=== PATIENT | female | born 1955 | race Caucasian/White ===

== ENCOUNTER 2016-11-22 10:45 | Emergency (ER) | payer OTHER ==
[~2016-11-22] VITALS: Ht 160 cm; Wt 70.5 kg
[~2016-11-22 10:45] MED LIST: DICL75 PO; FLUO10TA PO; ROBA750T3 PO
[2016-11-22 10:49] VITALS: BP 148/72; PULSE 85; RESP 15; TEMP 99.1; O2SAT 99
[2016-11-22] MEDS ORDERED: SODIUM CHLOR 0.9% 1000 ML INJ 1,000 ML IV ONE (11:02)
--- NOTE | 2016-11-22 11:08 | PD ---
HPI Chief Complaint: GI Complaint Time Seen by Provider: 10:56 Travel History International Travel<30 days: No Contact w/Intl Traveler<30days: No Traveled to known affect area: No History of Present Illness HPI The patient is a 61-year-old female who presents emergency department for abdominal pain and diarrhea. The patient states her lower abdominal pain started yesterday, is located bilateral lower quadrants, crampy, radiates to the back, is associated with diarrhea. The patient notes 5 episodes of diarrhea yesterday which started out as loose stool, is now watery with mucus. The patient notes 2 episodes of similar diarrhea this morning. The patient does have a history of C. difficile 2 years ago after antibiotic use. She denies any recent antibiotic use, hospitalizations, or known exposure to C. difficile. She denies any known history of chronic diverticulitis or colitis. She denies any recent international travel. She denies any fever, chills, or sweats. She denies any nausea or vomiting, but does think she may be mildly dehydrated secondary to the diarrhea. PFSH Past Medical History Hx Anticoagulant Therapy: No Anxiety: Yes Cardiovascular Problems: No Chemotherapy: No Cerebrovascular Accident: No Diabetes: No Diminished Hearing: No GERD: Yes Respiratory: No Menopausal: Yes Tubal Ligation: Yes Past Surgical History Hysterectomy: No Tonsillectomy: Yes (T&A) Other Surgery: Yes (RHINOPLASTY) Social History Alcohol Use: No Tobacco Use: Yes (3-4 CIGS DAILY) Substance Use: No Allergies-Medications (Allergen,Severity, Reaction): Coded Allergies: No Known Allergies (Unverified , 11/22/16) Reported Meds & Prescriptions Reported Meds & Active Scripts Active No Active Prescriptions or Reported Medications Review of Systems Except as stated in HPI: all other systems reviewed are Neg General / Constitutional: No: Fever, Chills Cardiovascular: No: Chest Pain or Discomfort Respiratory: No: Shortness of Breath Gastrointestinal: Positive: Diarrhea, Abdominal Pain, No: Nausea, Vomiting Musculoskeletal: No: Myalgias Physical Exam Narrative GENERAL: Awake, alert, nontoxic-appearing 61-year-old female who appears her stated age and is in no acute respiratory distress. SKIN: Focused skin assessment warm/dry. HEAD: Atraumatic. Normocephalic. EYES: Pupils equal and round. No scleral icterus. No injection or drainage. ENT: No nasal bleeding or discharge. Mucous membranes pink and moist. NECK: Trachea midline. No JVD. CARDIOVASCULAR: Regular rate and rhythm. No murmur appreciated. RESPIRATORY: No accessory muscle use. Clear to auscultation. Breath sounds equal bilaterally. GASTROINTESTINAL: Abdomen soft, tender palpation left and right lower quadrant. No guarding or rigidity. Back: No CVA tenderness. MUSCULOSKELETAL: No obvious deformities. No clubbing. No cyanosis. No edema. NEUROLOGICAL: Awake and alert. No obvious cranial nerve deficits. Motor grossly within normal limits. Normal speech. PSYCHIATRIC: Appropriate mood and affect; insight and judgment normal. Data Data Last Documented VS Vital Signs Date Time Temp Pulse Resp B/P (MAP) Pulse Ox O2 Delivery O2 Flow Rate FiO2 11/22/16 11:43 16 11/22/16 11:35 98 Room Air 11/22/16 10:49 99.1 85 148/72 (97) Orders Orders Complete Blood Count With Diff (11/22/16 11:02) Comprehensive Metabolic Panel (11/22/16 11:02) Lipase (11/22/16 11:02) Ct Abd/Pel W/O Iv Contrast (11/22/16 ) Iv Access Insert/Monitor (11/22/16 11:02) Ecg Monitoring (11/22/16 11:02) Oximetry (11/22/16 11:02) Morphine Inj (Morphine Inj) (11/22/16 11:15) Ondansetron Inj (Zofran Inj) (11/22/16 11:15) Sodium Chlor 0.9% 1000 Ml Inj (Ns 1000 M (11/22/16 11:02) Sodium Chloride 0.9% Flush (Ns Flush) (11/22/16 11:15) C Diff Toxin Pcr (11/22/16 11:02) Labs Laboratory Tests Test 11/22/16 11:15 White Blood Count 12.5 TH/MM3 Red Blood Count 4.75 MIL/MM3 Hemoglobin 13.8 GM/DL Hematocrit 41.0 % Mean Corpuscular Volume 86.3 FL Mean Corpuscular Hemoglobin 29.0 PG Mean Corpuscular Hemoglobin Concent 33.6 % Red Cell Distribution Width 14.1 % Platelet Count 292 TH/MM3 Mean Platelet Volume 7.4 FL Neutrophils (%) (Auto) 72.6 % Lymphocytes (%) (Auto) 15.5 % Monocytes (%) (Auto) 9.7 % Eosinophils (%) (Auto) 1.0 % Basophils (%) (Auto) 1.2 % Neutrophils # (Auto) 9.1 TH/MM3 Lymphocytes # (Auto) 1.9 TH/MM3 Monocytes # (Auto) 1.2 TH/MM3 Eosinophils # (Auto) 0.1 TH/MM3 Basophils # (Auto) 0.2 TH/MM3 CBC Comment DIFF FINAL Differential Comment Blood Urea Nitrogen 14 MG/DL Creatinine 0.64 MG/DL Random Glucose 99 MG/DL Total Protein 7.5 GM/DL Albumin 3.5 GM/DL Calcium Level 9.0 MG/DL Alkaline Phosphatase 151 U/L Aspartate Amino Transf (AST/SGOT) 19 U/L Alanine Aminotransferase (ALT/SGPT) 23 U/L Total Bilirubin 0.6 MG/DL Sodium Level 138 MEQ/L Potassium Level 3.8 MEQ/L Chloride Level 104 MEQ/L Carbon Dioxide Level 24.5 MEQ/L Anion Gap 10 MEQ/L Estimat Glomerular Filtration Rate 95 ML/MIN Lipase 187 U/L [facility] Medical Decision Making Medical Screen Exam Complete: Yes Emergency Medical Condition: Yes Medical Record Reviewed: Yes Interpretation(s) Laboratory Tests Test 11/22/16 11:15 White Blood Count 12.5 TH/MM3 Red Blood Count 4.75 MIL/MM3 Hemoglobin 13.8 GM/DL Hematocrit 41.0 % Mean Corpuscular Volume 86.3 FL Mean Corpuscular Hemoglobin 29.0 PG Mean Corpuscular Hemoglobin Concent 33.6 % Red Cell Distribution Width 14.1 % Platelet Count 292 TH/MM3 Mean Platelet Volume 7.4 FL Neutrophils (%) (Auto) 72.6 % Lymphocytes (%) (Auto) 15.5 % Monocytes (%) (Auto) 9.7 % Eosinophils (%) (Auto) 1.0 % Basophils (%) (Auto) 1.2 % Neutrophils # (Auto) 9.1 TH/MM3 Lymphocytes # (Auto) 1.9 TH/MM3 Monocytes # (Auto) 1.2 TH/MM3 Eosinophils # (Auto) 0.1 TH/MM3 Basophils # (Auto) 0.2 TH/MM3 CBC Comment DIFF FINAL Differential Comment Blood Urea Nitrogen 14 MG/DL Creatinine 0.64 MG/DL Random Glucose 99 MG/DL Total Protein 7.5 GM/DL Albumin 3.5 GM/DL Calcium Level 9.0 MG/DL Alkaline Phosphatase 151 U/L Aspartate Amino Transf (AST/SGOT) 19 U/L Alanine Aminotransferase (ALT/SGPT) 23 U/L Total Bilirubin 0.6 MG/DL Sodium Level 138 MEQ/L Potassium Level 3.8 MEQ/L Chloride Level 104 MEQ/L Carbon Dioxide Level 24.5 MEQ/L Anion Gap 10 MEQ/L Estimat Glomerular Filtration Rate 95 ML/MIN Lipase 187 U/L CT of the abdomen and pelvis reveals acute diverticulitis Differential Diagnosis Differential diagnosis includes colitis, diverticulitis, C. difficile, enteritis , viral syndrome, dehydration, partial small bowel obstruction. Narrative Course IV was established, labs are drawn and sent, and the patient was placed on cardiac telemetry monitoring and continuous pulse oximetry monitoring. Noncontrast CT of the abdomen and pelvis was ordered to evaluate for colitis/ diverticulitis. The patient was administered morphine, Zofran, and IV fluids. C. difficile toxin via PCR stool was ordered. Labs are unremarkable except for mildly elevated white count of 12.5. CT the abdomen and pelvis is positive for acute diverticulitis. The patient was administered Cipro orally and Flagyl intravenously. The patient will be discharged home on Cipro, Flagyl, and [place] for pain. She is advised to have clear liquid diet, advance as tolerated, follow-up with her primary physician. Return if symptoms worsen or progress. Diagnosis Primary Impression: Acute diverticulitis Patient Instructions: General Instructions Additional Instructions: Medications as directed. Please provide the patient a copy of her labs and CT results at discharge. Follow-up with your primary physician. Clear liquid diet and advance as tolerated. Med/Other Pt SpecificInfo: Prescription(s) given Scripts Hydrocodone-Acetaminophen ([place]) 5-325 mg Tab 1 TAB PO Q6H Y for PAIN, #15 TAB 0 Refills Prov: Ochoa Rodney MD 11/22/16 Metronidazole (Flagyl) 500 Mg Tab 500 MG PO BID for Infection for 7 Days, TAB 0 Refills Prov: Ochoa Rodney MD 11/22/16 Ciprofloxacin (Cipro) 500 Mg Tab 500 MG PO BID for Infection for 7 Days, TAB 0 Refills Prov: Ochoa Rodney MD 11/22/16 Disposition: DISCHARGE HOME Condition: Stable Ochoa Rodney MD Nov 22, 2016 11:07
[2016-11-22] MEDS ORDERED: MORPHINE SULFATE 4 MG/ML INJ IV ONE (11:15)
[2016-11-22] MEDS ORDERED: SODIUM CHLORIDE 0.9% FLUSH 10 ML FLUSH IVF PRN (11:15)
[2016-11-22] MEDS ORDERED: ONDANSETRON HCL 4 MG/2 ML VIAL IVP ONE (11:15)
[2016-11-22 11:24] LABS: AUTOMATED NEUTROPHIL # 9.1 TH/MM3 (1.8-7.7); BASOPHIL # 0.2 TH/MM3 (0-0.2); BASOPHIL % 1.2 % (0.0-2.0); EOSINOPHIL # 0.1 TH/MM3 (0-0.4); HEMO FLAGS DIFF FINAL; LYMPH % 15.5 % (9.0-44.0); LYMPHOCYTE # 1.9 TH/MM3 (1.0-4.8); MEAN CELL VOLUME 86.3 FL (80.0-100.0); MEAN CORPUSCULAR HGB CONC 33.6 % (32.0-36.0); MONO % 9.7 % (0.0-8.0); NEUT % 72.6 % (16.0-70.0); PLATELET COUNT 292 TH/MM3 (150-450); RED BLOOD COUNT 4.75 MIL/MM3 (4.00-5.30); RED CELL DISTRIBUTION WIDTH 14.1 % (11.6-17.2); WHITE BLOOD COUNT 12.5 TH/MM3 (4.0-11.0)
[2016-11-22 11:35] VITALS: RESP 16; O2SAT 98
[2016-11-22 11:36] LABS: CHLORIDE 104 MEQ/L (98-107); POTASSIUM 3.8 MEQ/L (3.5-5.1); SODIUM (NA) 138 MEQ/L (136-145)
[2016-11-22 11:40] LABS: ANION GAP 10 MEQ/L (5-15); BICARBONATE 24.5 MEQ/L (21.0-32.0); BLOOD UREA NITROGEN 14 MG/DL (7-18)
[2016-11-22 11:42] LABS: ALT (GPT) 23 U/L (10-53); AST (GOT) 19 U/L (15-37)
[2016-11-22 11:43] VITALS: RESP 16
[2016-11-22 11:43] LABS: GLOMERULAR FILTRATION RATE 95 ML/MIN (>89)
[2016-11-22 11:44] LABS: TOTAL BILIRUBIN ADULT 0.6 MG/DL (0.2-1.0)
[2016-11-22 11:45] LABS: ALKALINE PHOSPHATASE 151 U/L (45-117)
--- NOTE | 2016-11-22 12:01 | RADRPT ---
EXAM DATE/TIME: 11/22/2016 11:20 [facility] COMPARISON: No previous studies available for comparison. INDICATIONS : Lower abdominal pain and diarrhea. ORAL CONTRAST: No oral contrast ingested. RADIATION DOSE: 10.33 CTDIvol (mGy) MEDICAL HISTORY : Gastroesophageal reflux disease. SURGICAL HISTORY : Tubal ligation. ENCOUNTER: Initial ACUITY: 1 week PAIN SCALE: 6/10 LOCATION: Bilateral lower quadrant TECHNIQUE: Volumetric scanning of the abdomen and pelvis was performed. Using automated exposure control and ad justment of the mA and/or kV according to patient size, radiation dose was kept as low as reasonably achievable to obtain optimal diagnostic quality images. DICOM format image data is available electro nically for review and comparison. FINDINGS: CT Abdomen: The liver, spleen, pancreas, right kidney, adrenals are unremarkable. There are [address] ones in the left kidney measuring 4-5 mm in left upper pole and almost 2 mm in left lower pole. There is no ureteral stone and there is no hydronephrosis on either side. There is no evidence for any ap preciable pathological adenopathy, free fluid, or bowel obstruction. CT pelvis: There is no evidence for mass, abscess formation, or any significant adenopathy within the pelvis. There are diverticuli in sigmoid colon with moderate acute diverticulitis and no abscess. CONCLUSION: Acute diverticulitis. Ayala Butler MD on November 22, 2016 at 11:57 Board Certified Radiologist. This report was verified electronically.
[2016-11-22] MEDS ORDERED: METR-1 PO (12:10)
[2016-11-22] MEDS ORDERED: NORC5TAB PO (12:10)
[2016-11-22] MEDS ORDERED: CIPR-9 PO (12:10)
[2016-11-22] MEDS ORDERED: metroNIDAZOLE 500 MG INJ 100 ML IV ONE (12:15)
[2016-11-22] MEDS ORDERED: CIPROFLOXACIN 500 MG TAB PO ONE (12:15)
[2016-11-22 14:30] VITALS: BP 108/65
== END 2016-11-22 14:31 | disposition home or self-care (01) ==
LOC: PHED 10:45
DX: K57.92 Diverticulitis of intestine, part unspecified, without perforation or abscess without bleeding (principal); K21.9 Gastro-esophageal reflux disease without esophagitis; Z72.0 Tobacco use
CPT/HCPCS: 74176; 80053; 83690; 85025; 96361; 96365; 96375; 99285; J2270; J2405; J7030